=== PATIENT | female | born 1975 | race Caucasian/White ===

== ENCOUNTER 2017-06-14 12:44 | Emergency (ER) | payer BC, SELFPAY ==
[2017-06-14 13:06] VITALS: BP 154/105; PULSE 69; RESP 18; TEMP 36.9; O2SAT 100; BMI 35.4
--- NOTE | 2017-06-14 13:31 | HMH.EDUTC ---
[facility] [place] Clinical Impression: Sinusitis Qualifiers: Sinusitis location: unspecified location Chronicity: unspecified Qualified Code(s): J32.9 - Chronic sinusitis, unspecified Disposition: Home, Self-Care Condition on Discharge: Good Instructions: DI for Cough -- Adult, DI for Sinusitis, Sinusitis Additional Instructions: Start antibiotic. Sinus infections may take 2-3 days to notice much improvement so be sure to use conservative measures as discussed for symptoms Flonase 2 spray in each nostril daily to help with nasal congestion, sinus an ear pressure/inflammation Lots of Fluids Sleep elevated Humidifer/vaporizer Augmentin can cause GI effects. Probiotics may help to prevent these symptoms Follow up with family doctor for blood pressure recheck and treatment Prescriptions: Amoxicillin/Potassium Clav [Augmentin 875-125 Tablet] 1 tab PO Q12H #14 tab Dextromethorphan Polistirex [Delsym] 10 ml PO Q12H #350 rayne.er.12h Fluticasone Propionate [Flonase 50mcg nasal spray 16gm] 2 spr NS DAILY #1 bottle predniSONE [Prednisone 5mg Tab Dose-Pack] 5 mg PO UD DOSE PK #21 pack Referrals: Caryn Nowak APRN [Primary Care Provider] - Time of Disposition: 13:53 Medical Decision Making - Medical Records Medical records reviewed: Yes: I reviewed the patient's medical records. Vital Signs: 06/14/17 13:06 Temperature 98.4 F Temperature Source Temporal Artery Scan Pulse Rate [Right Brachial] 69 Respiratory Rate 18 Blood Pressure [Right Arm] 154/105 Blood Pressure Mean [Right Arm] 121 Blood Pressure Source [Right Arm] Automatic Cuff Blood Pressure Position [Right Arm] Sitting 02 Sat by Pulse Oximetry 100 Oxygen Delivery Method Room Air - Lab Data Lab results reviewed: Yes: I reviewed the patient's lab results. - Todd Inquiry Pt receiving controlled substance: No Todd was queried for this patient: No - Reevaluation(s) Time: 13:54 Reevaluation #1: Rechecked blood pressure now 142/90 will have patient follow up with family doctor for treatment and evaluation [facility] [place] - General Stated complaint: b/p high Mode of Arrival: Family Vehicle Source of Information: Patient Limitations: No Limitations Description of Symptoms (Recalled from Triage Doc. by RN): INCREASED B/P. SENT FROM [facility] WHERE B/P WAS 159/124 HEENT Symptoms (Recalled from RN notes): No Resp Symptoms (Recalled from RN notes): No Skin Symptoms (Recalled from RN notes): No MS Symptoms (Recalled from RN notes): No Functional Status (Recalled from RN notes): N/A - History of Present Illness Provider Complaint: Patient state that she went to [facility] because she thought she may have a sinus infection and when they checked her blood pressure it was found to be high State that she has no history of high blood pressure she is just not feeling well and they recommended that she come here and be seen. State that she has been having sinus pain and pressure along with drainage for several days that has continued to get worse - Related Data Home Medications Medication Instructions Recorded Confirmed levothyroxine 150 mcg tablet 75 mcg PO ONCE 30 Days #15 tab 06/14/17 06/14/17 naltrexone 8 mg-bupropion 90 mg 1 tab PO DAILY 30 Days #120 06/14/17 06/14/17 tablet,extended release Previous Rx's Medication Instructions Recorded Amoxicillin/Potassium Clav 1 tab PO Q12H #14 tab 06/14/17 [Augmentin 875-125 Tablet] Dextromethorphan Polistirex 10 ml PO Q12H #350 rayne.er.12h 06/14/17 [Delsym] Fluticasone Propionate [Flonase 2 spr NS DAILY #1 bottle 06/14/17 50mcg nasal spray 16gm] predniSONE [Prednisone 5mg Tab 5 mg PO UD DOSE PK #21 pack 06/14/17 Dose-Pack] Allergies Allergy/AdvReac Type Severity Reaction Status Date / Time No Known Allergies Allergy Verified 06/14/17 11:56 - Worker's Comp Is this a Worker's Comp case?: No [facility] History I have reviewed the patient's past medical history: Yes Other Medical
--- NOTE | 2017-06-14 13:39 | ED_ITS ---
[facility] [place] Clinical Impression: Sinusitis Qualifiers: Sinusitis location: unspecified location Chronicity: unspecified Qualified Code (s): J32.9 - Chronic sinusitis, unspecified Disposition: Home, Self-Care Condition on Discharge: Good Instructions: DI for Cough -- Adult, DI for Sinusitis, Sinusitis Additional Instructions: Start antibiotic. Sinus infections may take 2-3 days to notice much improvement so be sure to use conservative measures as discussed for symptoms Flonase 2 spray in each nostril daily to help with nasal congestion, sinus an ear pressure/inflammation Lots of Fluids Sleep elevated Humidifer/vaporizer Augmentin can cause GI effects. Probiotics may help to prevent these symptoms Follow up with family doctor for blood pressure recheck and treatment Prescriptions: Amoxicillin/Potassium Clav [Augmentin 875-125 Tablet] 1 tab PO Q12H #14 tab Dextromethorphan Polistirex [Delsym] 10 ml PO Q12H #350 rayne.er.12h Fluticasone Propionate [Flonase 50mcg nasal spray 16gm] 2 spr NS DAILY #1 bottle predniSONE [Prednisone 5mg Tab Dose-Pack] 5 mg PO UD DOSE PK #21 pack Referrals: Caryn Nowak APRN [Primary Care Provider] - Time of Disposition: 13:53 Medical Decision Making - Medical Records Medical records reviewed: Yes: I reviewed the patient's medical records. Vital Signs: 06/14/17 13:06 Temperature 98.4 F Temperature Source Temporal Artery Scan Pulse Rate [Right Brachial] 69 Respiratory Rate 18 Blood Pressure [Right Arm] 154/105 Blood Pressure Mean [Right Arm] 121 Blood Pressure Source [Right Arm] Automatic Cuff Blood Pressure Position [Right Arm] Sitting 02 Sat by Pulse Oximetry 100 Oxygen Delivery Method Room Air - Lab Data Lab results reviewed: Yes: I reviewed the patient's lab results. - Todd Inquiry Pt receiving controlled substance: No Todd was queried for this patient: No - Reevaluation(s) Time: 13:54 Reevaluation #1: Rechecked blood pressure now 142/90 will have patient follow up with family doctor for treatment and evaluation [facility] [place] - General Stated complaint: b/p high Mode of Arrival: Family Vehicle Source of Information: Patient Limitations: No Limitations Description of Symptoms (Recalled from Triage Doc. by RN): INCREASED B/P. SENT FROM [facility] WHERE B/P WAS 159/124 HEENT Symptoms (Recalled from RN notes): No Resp Symptoms (Recalled from RN notes): No Skin Symptoms (Recalled from RN notes): No MS Symptoms (Recalled from RN notes): No Functional Status (Recalled from RN notes): N/A - History of Present Illness Provider Complaint: Patient state that she went to [facility] because she thought she may have a sinus infection and when they checked her blood pressure it was found to be high State that she has no history of high blood pressure she is just not feeling well and they recommended that she come here and be seen. State that she has been having sinus pain and pressure along with drainage for several days that has continued to get worse - Related Data Home Medications Medication Instructions Recorded Confirmed levothyroxine 150 mcg tablet 75 mcg PO ONCE 30 Days #15 tab 06/14/17 06/14/17 naltrexone 8 mg-bupropion 90 mg 1 tab PO DAILY 30 Days #120 06/14/17 06/14/17 tablet,extended release Previous Rx's Medication Instructions Recorded Amoxicillin/Potassium Clav 1 tab PO Q12H #14 tab 06/14/17
[2017-06-14 13:52] VITALS: BP 142/90
[2017-06-14 13:59] VITALS: BP 142/90; PULSE 69; RESP 20; TEMP 37; O2SAT 100
[2017-06-14 14:09] LABS: UTC Influenza A Antigen Negative (Negative); UTC Influenza B Antigen Negative (Negative)
== END 2017-06-14 14:01 | disposition home or self-care (01) ==
PROVIDERS: Emergency Provider Nurse Practitioner; Family Provider Family Medicine; PCP Nurse Practitioner Family
DX: J32.9 Chronic sinusitis, unspecified (principal); E03.9 Hypothyroidism, unspecified; I10 Essential (primary) hypertension
CPT/HCPCS: 87804; 99203

== ENCOUNTER 2023-09-30 12:34 | Emergency (ER) | payer BC, SELFPAY ==
[2023-09-30] VITALS (9 sets, daily range): BP systolic 165–222; BP diastolic 107–139; PULSE 62–78; RESP 16–20; TEMP 36.4; O2SAT 97–100; BMI 35.0
--- NOTE | 2023-09-30 12:43 | CT_ITS ---
FINAL REPORT TECHNIQUE: Oral and IV contrast enhanced exam CLINICAL HISTORY: epigastric/RUQ abd pain, nausea COMPARISON: None FINDINGS: Abdomen: Lung bases are clear. There is increased density in the dependent portion of the gallbladder suspicious for stone disease. There are postoperative changes of gastric bypass. There is a significantly fluid-filled dilated gastric remnant and pancreatic biliary limb. The pattern is suggestive of small bowel obstruction, as the small bowel distal to the J-J anastomosis is normal in caliber. The transverse duodenum measures 6 cm in diameter. Liver has an unremarkable CT appearance. The spleen and adrenal glands are unremarkable. Kidneys show no mass or obstruction. Pelvis: There is no evidence of appendicitis. Pelvic bowel loops are unremarkable. No fluid collection or adenopathy is seen. There is a benign-appearing left ovarian cyst measuring 4.5 cm in diameter. IMPRESSION: Postoperative changes of a gastric bypass are noted, and there are significantly dilated portions of the duodenum and pancreatic biliary limb consistent with small bowel obstruction. The small bowel distal to the jejunal-jejunal anastomosis is unremarkable in appearance. Increased densities in the dependent portion of the gallbladder suspicious for stone disease. Reviewed, Interpreted and Dictated by Jeanette Patiño MD Transcribed by Katelynn Everett Authenticated and [facility]
--- NOTE | 2023-09-30 12:45 | ED_ITS ---
Discharge Plan Disposition Patient Disposition: Xfer Short-Term Hosp Prescriptions Prescriptions: No Action levothyroxine 150 mcg tablet 75 mcg PO ONCE 30 Days Qty: 15 Patient Comments: naltrexone-bupropion 8-90 mg tablet extended release 1 tab PO DAILY 30 Days Qty: 120 Patient Comments: dextromethorphan polistirex 30 MG/5 ML suspension,extended rel 12 hr 10 ml PO Q12H Qty: 350 0RF prednisone 5 MG tablets,dose pack 5 mg PO UD DOSE PK Qty: 21 0RF amoxicillin-pot clavulanate 1 EACH tablet 1 tab PO Q12H Qty: 14 0RF fluticasone propionate 120 SPR/BOT bottle 2 spr NS DAILY Qty: 1 0RF Referrals Follow up/Referrals: Nohemi Kwok MD [Primary Care Provider] - See instructions Clinical Impressions Clinical Impression: Bowel obstruction, Acidosis, lactic Stand Alone Forms Stand Alone Forms: Transfer Record - ED Discharge ED Provider: Angelica Pacheco General Adult HPI <Angelica Pacheco MD - Last Filed: 09/30/23 15:12> General Chief complaint: Abdominal Pain Stated complaint: abd pain, vomiting Time Seen by Provider: 09/30/23 12:36 History of Present Illness HPI narrative: 47-year-old female with history of hypothyroid and hypertension presents to the ER for concerns of epigastric and right upper quadrant abdominal pain that started last night and has worsened through the day today. She states it radiates to her back. Patient states that she had meatloaf and beans for dinner last night and her pain onset overnight, worsening through the day. She has had nausea but no vomiting, no diarrhea or constipation. She states she still has her gallbladder, she denies chest pain or difficulty breathing. She states she has not taken any medications today, she has not had any oral intake either. She denies fevers and dysuria. Related Data Home Medications Medication Instructions Recorded Confirmed levothyroxine 150 mcg tablet 75 mcg PO ONCE HORMONE REPLACEMENT 06/14/17 06/14/17 30 days #15 tabs naltrexone 8 mg-bupropion 90 mg 1 tab PO DAILY Weight loss 30 days 06/14/17 06/14/17 tablet,extended release ##120 Previous Rx's Medication Instructions Recorded amoxicillin 875 mg-potassium 1 tab PO Q12H #14 tabs 06/14/17 clavulanate 125 mg tablet dextromethorphan polistirex 30 10 ml PO Q12H ##350 06/14/17 mg/5 mL oral susp ext.release 12hr fluticasone propionate 50 2 spr NS DAILY ##1 06/14/17 mcg/actuation nasal spray,suspension prednisone 5 mg tablets in a dose 5 mg PO UD DOSE PK ##21 06/14/17 pack Allergies Allergy/AdvReac Type Severity Reaction Status Date / Time No Known Allergies Allergy Verified 06/14/17 11:56 PFSH <Angelica Pacheco MD - Last Filed: 09/30/23 15:12> PFS Disclaimer: The information contained in this section may have been updated after the patient was seen, as this information can be updated by other users. Social History (Updated 09/30/23 @ 15:12 by Angelica Pacheco MD) Smoking Status: Never smoker alcohol intake: never substance use type: denies use current occupational status: other Travel in the last 8 weeks: None <Angelica Pacheco MD - Last Filed: 09/30/23 15:12> ROS Obtained: Yes All systems reviewed & no additional complaints except as documented Constitutional Constitutional: Reports chills, Denies fever(s), Denies headache(s) and Denies weakness Eyes Eyes: Denies change in vision ENT Ears, Nose, Mouth, and Throat: Denies dizziness, Denies headache(s), Denies nasal congestion and Denies sore throat Cardiovascular Cardiovascular: Denies chest pain, Denies dyspnea and Denies leg edema Respiratory Respiratory: Denies cough and Denies dyspnea Gastrointestinal Gastrointestingal: Reports abdominal pain and nausea; Denies constipation, diarrhea or vomiting Genitourinary Female Genitourinary: Denies dysuria Musculoskeletal Musculoskeletal: Denies arthralgias, Denies myalgias, Denies numbness and Denies tingling Integumentary/Breasts Skin/Breast: Denies change in pigmentation Neurologic Neurologic: Denies dizziness, Denies headache(s), Denies numbness, Denies tingling and Denies weakness Physical Exam <Angelica Pacheco MD - Last Filed: 09/30/23 15:12> General General appearance: alert, in no apparent distress and obese Head Head exam: atraumatic and normocephalic Eye Eye exam: Present PERRL and EOMI ENT ENT exam: Present mucous membranes moist Neck Neck exam: Present normal inspection and full ROM Chest Chest inspection: Present symmetric chest wall rise Respiratory Respiratory exam: Present normal lung sounds bilaterally; Absent respiratory distress, wheezes or stridor Cardiovascular Cardiovascular exam: Present regular rate and normal rhythm Abdominal Exam Abdominal exam: Present soft and tenderness (Epigastric, right upper quadrant); Absent distention, guarding or rebound Extremities Exam Extremities exam: Present full ROM Neurological Exam Neurological exam: Present alert and oriented X3; Absent motor sensory deficit Psychiatric Psychiatric exam: Present normal affect and normal mood Skin Skin exam: Present warm and dry Medical Decision Making <Angelica Pacheco MD - Last Filed: 09/30/23 15:12> Medical Records Medical records reviewed: Yes I reviewed the patient's medical records. Todd Inquiry Pt receiving controlled substance: No Vital Signs: 09/30/23 12:41 09/30/23 12:52 09/30/23 13:00 Temperature 97.5 F L Temperature Source Oral Pulse Rate 77 71 Pulse Rate [Left Radial] 78 Respiratory Rate 20 Blood Pressure 165/107 H 204/119 H Blood Pressure [Right Arm] 165/107 H Blood Pressure Mean 147 Blood Pressure Mean [Right Arm] 126 Blood Pressure Source Blood Pressure Position 02 Sat by Pulse Oximetry 100 100 97 Oxygen Delivery Method Room Air Room Air 09/30/23 13:20 09/30/23 13:30 09/30/23 14:00 Temperature Temperature Source Pulse Rate 69 62 72 Pulse Rate [Left Radial] Respiratory Rate Blood Pressure 191/117 H 210/122 H 222/130 H Blood Pressure [Right Arm] Blood Pressure Mean 148 Blood Pressure Mean [Right Arm] Blood Pressure Source Blood Pressure Position 02 Sat by Pulse Oximetry 98 99 100 Oxygen Delivery Method Room Air 09/30/23 14:30 09/30/23 15:03 09/30/23 15:57 Temperature 97.5 F L Temperature Source Oral Pulse Rate 72 Pulse Rate [Left Radial] Respiratory Rate 16 Blood Pressure 198/139 H 202/112 H 202/112 H Blood Pressure [Right Arm] Blood Pressure Mean 158 142 Blood Pressure Mean [Right Arm] Blood Pressure Source Automatic Cuff Blood Pressure Position Sitting 02 Sat by Pulse Oximetry Oxygen Delivery Method Room Air Lab Data Lab Results 09/30/23 12:43: Urine Color Yellow, Urine Appearance Clear, Urine pH 7.5, Ur Specific [place] 1.025, Urine Protein 1+, Urine Glucose (UA) Negative, Urine Ketones 3+, Urine Blood Trace-i, Urine Nitrate Negative, Urine Bilirubin Negative, Urine Urobilinogen 0.2, Ur Leukocyte Esterase Negative, Urine RBC Occasional, Urine WBC Occasional, Ur Squamous Epith Cells 3-5, Urine Bacteria Trace 09/30/23 12:48: WBC 12.7 H, RBC 4.67, Hgb 14.1, Hct 44.1, MCV 94.5, MCH 30.2, MCHC 32.0, RDW 13.7, Plt Count 421, MPV 8.2, Neut % (Auto) 81.1 H, Lymph % (Auto) 13.0, [place] % (Auto) 3.9, Eos % (Auto) 1.5, Baso % (Auto) 0.6, Neut # (Auto) 10.3 H, Lymph # (Auto) 1.7, [place] # (Auto) 0.5, Eos # (Auto) 0.2, Baso # (Auto) 0.1, Sodium 137, Potassium 3.3 L, Chloride 105, Carbon Dioxide 19 L, A nion Gap 16.3 H, BUN 9, Creatinine 0.50 L, Estimated Creat Clear 226, Estimated GFR 133, Est GFR ( Amer) 161, Glucose 158 H, Lactate 3.3 H, Calcium 9.7, Total Bilirubin 0.5, AST 36, ALT 34, Alkaline Phosphatase 153 H, Total Protein 8.4 H, Albumin 4.8, Globulin 3.6 H, Albumin/Globulin Ratio 1.3, Lipase 263, Serum HCG, Qual Negative 09/30/23 15:34: Lactate 1.7 09/30/23 12:48 09/30/23 12:48 Orders (Tests/Meds): ED MEDICATIONS Discontinued Medications Generic Name Dose Route Start Last Admin Trade Name Freq PRN Reason Stop Dose Admin Lactated Ringer's 1,000 mls @ 999 mls/hr 09/30/23 12:44 09/30/23 12:54 Lactated Ringer's 1000 Ml Bag IV 09/30/23 13:44 999 mls/hr .Q1H1M ONE Administration Piperacillin Sod/Tazobactam 100 mls @ 200 mls/hr 09/30/23 14:35 09/30/23 14:45 Sod 4.5 gm/ Sodium Chloride IV 09/30/23 15:04 200 mls/hr ONCE ONE Administration Iopamidol 75 ml 09/30/23 13:38 09/30/23 13:39 Iopamidol-370 (76%);100ml Bottle IV 09/30/23 13:39 75 ml ONCE ONE Administration Morphine Sulfate 4 mg 09/30/23 12:44 09/30/23 12:54 Morphine 4mg/Ml Syringe IV 09/30/23 12:45 4 mg ONCE ONE Administration Morphine Sulfate 4 mg 09/30/23 15:52 09/30/23 15:56 Morphine 4mg/Ml Syringe IV 09/30/23 15:53 4 mg ONCE ONE Administration Ondansetron HCl 4 mg 09/30/23 12:44 09/30/23 12:54 Ondansetron 4mg/2ml Vial IV 09/30/23 12:45 4 mg ONCE ONE Administration Promethazine HCl 25 mg 09/30/23 14:36 09/30/23 14:45 Promethazine Hcl 25mg/Ml 1ml Vial IV 09/30/23 14:37 25 mg ONCE ONE Administration Sodium Chloride 10 ml 09/30/23 13:38 09/30/23 13:39 Sodium Chloride 0.9% 10ml Syr (Rad Only) IV 09/30/23 13:39 10 ml ONCE ONE Administration Sodium Chloride 25 ml 09/30/23 14:36 09/30/23 14:45 Sodium Chloride 0.9% 25ml Bag IV 09/30/23 14:37 25 ml ONCE ONE Administration ORDERS Category Date Time Status CT abdomen pelvis w con Stat Cat Scan 09/30/23 12:43 Taken CBC w/Auto Diff [Complete Blood Count Auto Diff] Stat Lab 09/30/23 12:48 Completed CMP [Comprehensive Metabolic Panel] Stat Lab 09/30/23 12:48 Completed Lactic Acid Follow Up (RFLX 1) Stat Lab 09/30/23 15:34 Completed Lactic Acid Stat Lab 09/30/23 12:48 Completed Lipase Stat Lab 09/30/23 12:48 Completed Serum [HCG Qualitative, Serum] Stat Lab 09/30/23 12:48 Completed Urinalysis and Microscopic Stat Lab 09/30/23 12:43 Completed Medical Decision Narrative: In summary, this 47-year-old female presents to the emergency department today with concerns of epigastric, right upper quadrant abdominal pain radiating to the back with nausea but no vomiting. On initial evaluation patient is uncomfortable appearing but nontoxic, hemodynamically stable, afebrile, tenderness to palpation in the epigastric and right upper quadrant without rebound or guarding, no CVA tenderness, nonacute abdomen. Differential diagnosis includes but is not limited to viral syndrome, pancreatitis, lactic acidosis, cholelithiasis, cholecystitis, transaminitis, bowel obstruction, urinary tract infection. Based on these concerns, I ordered serum labs, urine studies, CT abdomen pelvis. Patient received IV fluids, morphine, Zofran for treatment. Labs personally reviewed demonstrate mild leukocytosis, no anemia, mild lactic acidosis with slight anion gap, good kidney function, slight elevation in alkaline phosphatase but no other liver dysfunction, UA negative for findings of infection. CT imaging personally interpreted demonstrate findings concerning for proximal bowel obstruction. Patient has history of bariatric surgery to shrink her stomach 12 years ago at [place]. This increases risk of complication. Radiology read is pending. I called Dr. Diamond with general surgery and discussed this case with him, due to the complications potentially associated with this patient's bariatric surgery in the setting of bowel obstruction, he recommended patient be transferred for more specialized management. [place] general surgery/bariatric surgery has been called at [phone]. I ordered Zosyn for administration due to concerns of time it may take to transfer the patient and potential for worsening of condition and that time. I discussed findings with the patient. She states her nausea has not improved and she is still uncomfortable. Administering Phenergan. I had interactive discussion with Dr. Ashby at [facility] with general surgery. We discussed patient's symptoms and findings on CT scan. She excepted the patient for transfer. I discussed this case with the hospitalist Dr. Rudd at [facility] who has accepted the patient to a [facility] bed. They are going to call back with bed assignment. Patient continues to be in stable condition. She will be transferred to [facility] after bed assignment has been completed. Patient handed off to Dr. Calderon at physician shift change pending transfer. <Amparo Calderon, DO - Last Filed: 09/30/23 17:03> Vital Signs: 09/30/23 12:41 09/30/23 12:52 09/30/23 13:00 Temperature 97.5 F L Temperature Source Oral Pulse Rate 77 71 Pulse Rate [Left Radial] 78 Respiratory Rate 20 Blood Pressure 165/107 H 204/119 H Blood Pressure [Right Arm] 165/107 H Blood Pressure Mean 147 Blood Pressure Mean [Right Arm] 126 Blood Pressure Source Blood Pressure Position 02 Sat by Pulse Oximetry 100 100 97 Oxygen Delivery Method Room Air Room Air 09/30/23 13:20 09/30/23 13:30 09/30/23 14:00 Temperature Temperature Source Pulse Rate 69 62 72 Pulse Rate [Left Radial] Respiratory Rate Blood Pressure 191/117 H 210/122 H 222/130 H Blood Pressure [Right Arm] Blood Pressure Mean 148 Blood Pressure Mean [Right Arm] Blood Pressure Source Blood Pressure Position 02 Sat by Pulse Oximetry 98 99 100 Oxygen Delivery Method Room Air 09/30/23 14:30 09/30/23 15:03 09/30/23 15:57 Temperature 97.5 F L Temperature Source Oral Pulse Rate 72 Pulse Rate [Left Radial] Respiratory Rate 16 Blood Pressure 198/139 H 202/112 H 202/112 H Blood Pressure [Right Arm] Blood Pressure Mean 158 142 Blood Pressure Mean [Right Arm] Blood Pressure Source Automatic Cuff Blood Pressure Position Sitting 02 Sat by Pulse Oximetry Oxygen Delivery Method Room Air Lab Data Lab Results 09/30/23 12:43: Urine Color Yellow, Urine Appearance Clear, Urine pH 7.5, Ur Specific [place] 1.025, Urine Protein 1+, Urine Glucose (UA) Negative, Urine Ketones 3+, Urine Blood Trace-i, Urine Nitrate Negative, Urine Bilirubin Negative, Urine Urobilinogen 0.2, Ur Leukocyte Esterase Negative, Urine RBC Occasional, Urine WBC Occasional, Ur Squamous Epith Cells 3-5, Urine Bacteria Trace 09/30/23 12:48: WBC 12.7 H, RBC 4.67, Hgb 14.1, Hct 44.1, MCV 94.5, MCH 30.2, MCHC 32.0, RDW 13.7, Plt Count 421, MPV 8.2, Neut % (Auto) 81.1 H, Lymph % (Auto) 13.0, [place] % (Auto) 3.9, Eos % (Auto) 1.5, Baso % (Auto) 0.6, Neut # (Auto) 10.3 H, Lymph # (Auto) 1.7, [place] # (Auto) 0.5, Eos # (Auto) 0.2, Baso # (Auto) 0.1, Sodium 137, Potassium 3.3 L, Chloride 105, Carbon Dioxide 19 L, A nion Gap 16.3 H, BUN 9, Creatinine 0.50 L, Estimated Creat Clear 226, Estimated GFR 133, Est GFR ( Amer) 161, Glucose 158 H, Lactate 3.3 H, Calcium 9.7, Total Bilirubin 0.5, AST 36, ALT 34, Alkaline Phosphatase 153 H, Total Protein 8.4 H, Albumin 4.8, Globulin 3.6 H, Albumin/Globulin Ratio 1.3, Lipase 263, Serum HCG, Qual Negative 09/30/23 15:34: Lactate 1.7 Orders (Tests/Meds): ED MEDICATIONS Discontinued Medications Generic Name Dose Route Start Last Admin Trade Name Freq PRN Reason Stop Dose Admin Lactated Ringer's 1,000 mls @ 999 mls/hr 09/30/23 12:44 09/30/23 12:54 Lactated Ringer's 1000 Ml Bag IV 09/30/23 13:44 999 mls/hr .Q1H1M ONE Administration Piperacillin Sod/Tazobactam 100 mls @ 200 mls/hr 09/30/23 14:35 09/30/23 14:45 Sod 4.5 gm/ Sodium Chloride IV 09/30/23 15:04 200 mls/hr ONCE ONE Administration Iopamidol 75 ml 09/30/23 13:38 09/30/23 13:39 Iopamidol-370 (76%);100ml Bottle IV 09/30/23 13:39 75 ml ONCE ONE Administration Morphine Sulfate 4 mg 09/30/23 12:44 09/30/23 12:54 Morphine 4mg/Ml Syringe IV 09/30/23 12:45 4 mg ONCE ONE Administration Morphine Sulfate 4 mg 09/30/23 15:52 09/30/23 15:56 Morphine 4mg/Ml Syringe IV 09/30/23 15:53 4 mg ONCE ONE Administration Ondansetron HCl 4 mg 09/30/23 12:44 09/30/23 12:54 Ondansetron 4mg/2ml Vial IV 09/30/23 12:45 4 mg ONCE ONE Administration Promethazine HCl 25 mg 09/30/23 14:36 06/25/24 14:45 Promethazine Hcl 25mg/Ml 1ml Vial IV 09/30/23 14:37 25 mg ONCE ONE Administration Sodium Chloride 10 ml 09/30/23 13:38 09/30/23 13:39 Sodium Chloride 0.9% 10ml Syr (Rad Only) IV 09/30/23 13:39 10 ml ONCE ONE Administration Sodium Chloride 25 ml 09/30/23 14:36 09/30/23 14:45 Sodium Chloride 0.9% 25ml Bag IV 09/30/23 14:37 25 ml ONCE ONE Administration ORDERS Category Date Time Status CT abdomen pelvis w con Stat Cat Scan 09/30/23 12:43 Taken CBC w/Auto Diff [Complete Blood Count Auto Diff] Stat Lab 09/30/23 12:48 Completed CMP [Comprehensive Metabolic Panel] Stat Lab 09/30/23 12:48 Completed Lactic Acid Follow Up (RFLX 1) Stat Lab 09/30/23 15:34 Completed Lactic Acid Stat Lab 09/30/23 12:48 Completed Lipase Stat Lab 09/30/23 12:48 Completed Serum [HCG Qualitative, Serum] Stat Lab 09/30/23 12:48 Completed Urinalysis and Microscopic Stat Lab 09/30/23 12:43 Completed Medical Decision Narrative: In summary, this 47-year-old female presents to the emergency department today with concerns of epigastric, right upper quadrant abdominal pain radiating to the back with nausea but no vomiting. On initial evaluation patient is uncomfortable appearing but nontoxic, hemodynamically stable, afebrile, tenderness to palpation in the epigastric and right upper quadrant without rebound or guarding, no CVA tenderness, nonacute abdomen. Differential diagnosis includes but is not limited to viral syndrome, pancreatitis, lactic acidosis, cholelithiasis, cholecystitis, transaminitis, bowel obstruction, urinary tract infection. Based on these concerns, I ordered serum labs, urine studies, CT abdomen pelvis. Patient received IV fluids, morphine, Zofran for treatment. Labs personally reviewed demonstrate mild leukocytosis, no anemia, mild lactic acidosis with slight anion gap, good kidney function, slight elevation in alkaline phosphatase but no other liver dysfunction, UA negative for findings of infection. CT imaging personally interpreted demonstrate findings concerning for proximal bowel obstruction. Patient has history of bariatric surgery to shrink her stomach 12 years ago at [place]. This increases risk of complication. Radiology read is pending. I called Dr. Diamond with general surgery and discussed this case with him, due to the complications potentially associated with this patient's bariatric surgery in the setting of bowel obstruction, he recommended patient be transferred for more specialized management. [place] general surgery/bariatric surgery has been called at [phone]. I ordered Zosyn for administration due to concerns of time it may take to transfer the patient and potential for worsening of condition and that time. I discussed findings with the patient. She states her nausea has not improved and she is still uncomfortable. Administering Phenergan. I had interactive discussion with Dr. Ashby at [facility] with general surgery. We discussed patient's symptoms and findings on CT scan. She excepted the patient for transfer. I discussed this case with the hospitalist Dr. Rudd at [facility] who has accepted the patient to a [facility] bed. They are going to call back with bed assignment. Patient continues to be in stable condition. She will be transferred to [facility] after bed assignment has been completed. Patient handed off to Dr. Calderon at physician shift change pending transfer. Kvng, DO: On my assessment of the patient, she is stable. She complains of continued pain, for which she was given another dose of morphine. She was transported by EMS to [place] in stable condition. Critical Care <Angelica Pacheco MD - Last Filed: 09/30/23 15:12> Critical Care Time Critical Care Time: No
[2023-09-30 12:46] LABS: Microscopic, Urine URINE MICROSCOPIC (MICROSCOPIC)
[2023-09-30 12:49] LABS: Appearance,Urine CLEAR (Clear); Bilirubin,Urine Negative (Negative); Blood, Urine TRACE-I (Negative); Color,Urine YELLOW (Yellow); Glucose,Urine (UA) Negative (Negative); Ketones,Urine 3+ (Negative); Leukocyte Esterase,Urine Negative (Negative); Nitrate,Urine Negative (Negative); PH,Urine 7.5 (5.0-8.5); Protein,Urine 1+ (Negative); Specific Gravity, Urine 1.025 (1.005-1.030); Urobilinogen,Urine 0.2 EU/dl (0.2)
[2023-09-30] MEDS: LACTATED RINGERS 1000ML 1,000 ML 999 ML IV (12:54)
[2023-09-30] MEDS: MORPHINE 4MG/ML SYRINGE 4 MG IV ×2 (12:54→15:56)
[2023-09-30] MEDS: ONDANSETRON 4MG/2ML VIAL 4 MG IV (12:54)
[2023-09-30 13:00] LABS: Basophils # 0.1 K/mm3 (0-0.2); Basophils % 0.6 % (0.1-2.0); Eosinophils # 0.2 K/mm3 (0.0-0.4); Eosinophils % 1.5 % (0.1-12.0); Hematocrit 44.1 % (37.0-47.0); Hemoglobin 14.1 g/dL (12.2-16.2); Lymphocytes # 1.7 K/mm3 (0.7-4.5); Mean Corpuscular Hemoglobin 30.2 pg (27.0-31.2); Mean Corpuscular Volume 94.5 fl (81-99); Mean Platelet Volume 8.2 fl (7.4-10.4); Monocytes # 0.5 K/mm3 (0.1-1.0); Monocytes % 3.9 % (1.7-9.3); Neutrophils # 10.3 K/mm3 (1.8-7.8); Neutrophils % 81.1 % (37.0-80.0); Platelet Count 421 K/mm3 (142-424); Red Blood Count 4.67 M/mm3 (4.20-5.40); Red Cell Distribution Width 13.7 % (11.5-17.5); White Blood Count 12.7 K/mm3 (4.8-10.8)
[2023-09-30 13:02] LABS: Chloride 105 mmol/L (98-107); Potassium 3.3 mmoL/L (3.5-5.1); Sodium 137 mmol/L (136-145)
[2023-09-30 13:04] LABS: Blood Urea Nitrogen 9 mg/dl (7-17); Estimated Glomerular Filt Rate 133 ml/min (>60); GFR (African American) 161 ML/MIN (>60)
[2023-09-30 13:05] LABS: Alanine Aminotransferase 34 U/L (12-78); Albumin Level 4.8 g/dl (3.5-5.0); Albumin/Globulin Ratio 1.3 (1.1-1.8); Alkaline Phosphatase 153 U/L (38-126); Anion Gap 16.3 mEq/L (5-15); Aspartate Amino Transferase 36 U/L (14-36); Bilirubin,Total 0.5 mg/dl (0.2-1.3); Calcium 9.7 mg/dl (8.4-10.2); Carbon Dioxide 19 mmol/L (22.0-30.0); Globulin 3.6 g/dL (1.3-3.2); Glucose 158 mg/dl (74-100); Lipase 263 U/L (23-300); Total Protein,Serum 8.4 g/dl (6.3-8.2)
[2023-09-30 13:08] LABS: Bacteria,Urine Trace /lpf; RBC,Urine Occasional #/hpf (0-3); WBC,Urine Occasional #/hpf (0-3)
[2023-09-30 13:09] LABS: Creatinine Clearance Estimated 226 mL/min (50-200); Lactic Acid 3.3 mmol/L (0.7-2.1)
[2023-09-30 13:10] LABS: HCG Qualitative, Serum Negative (Negative)
--- NOTE | 2023-09-30 13:35 | PC.NURSE ---
PT gone to RAD via wheelchair
[2023-09-30] MEDS: IOPAMIDOL-370 (76%);100ML BOTTLE 75 ML IV (13:39)
[2023-09-30] MEDS: SODIUM CHLORIDE 0.9% 10ML SYR (RAD ONLY) 10 ML IV (13:39)
--- NOTE | 2023-09-30 13:42 | PC.NURSE ---
Pt returned from RAD
[2023-09-30] MEDS: PROMETHAZINE HCL 25MG/ML 1ML VIAL 25 MG IV (14:45)
[2023-09-30] MEDS: SODIUM CHLORIDE 0.9% 25ML BAG 25 ML IV (14:45)
[2023-09-30] MEDS: PIPERACILLIN/TAZO 4.5 GM in 0.9 % SODIUM CHLORIDE 100 ML IV (14:45)
[2023-09-30 15:02] LABS: Reflex Lactic Add Lactic Reflex
[2023-09-30 15:54] LABS: Lactic Acid Follow Up (RFLX 1) 1.7 mmol/L (0.7-2.1)
== END 2023-09-30 15:58 | disposition short-term general hospital (02) ==
PROVIDERS: Emergency Provider Emergency Medicine; PCP Family Medicine
DX: K56.609 Unspecified intestinal obstruction, unspecified as to partial versus complete obstruction (principal); R10.13 Epigastric pain; R10.11 Right upper quadrant pain; E87.29 Other acidosis; R74.02 Elevation of levels of lactic acid dehydrogenase [LDH]; R11.0 Nausea; E03.9 Hypothyroidism, unspecified; I10 Essential (primary) hypertension; Z98.84 Bariatric surgery status
CPT/HCPCS: 74177; 80053; 81001; 83605; 83690; 84703; 85025; 96361; 96365; 96375; 96376; 99285; J2270; J2405; J2543; J2550; J7120; Q9967